=== PATIENT | male | born 1945 | race Caucasian/White ===

== ENCOUNTER 2018-11-27 10:49 | Emergency (ER) | payer OTHER ==
[~2018-11-27] VITALS: Ht 180.3 cm; Wt 107.0 kg
[2018-11-27] MEDS ORDERED: PRAVACHOL40 MG PO ×2 (10:58→12:24)
[2018-11-27] MEDS ORDERED: OMEPRAZOLE20 M1 PO (10:58)
[2018-11-27] MEDS ORDERED: TRAZODONE HCL100 MG PO ×2 (10:58→12:24)
[2018-11-27] MEDS ORDERED: ZOLOFT100 MG PO ×2 (10:58→12:24)
[2018-11-27] MEDS ORDERED: LOPRESSOR25 PO ×2 (10:59→12:26)
[2018-11-27] MEDS ORDERED: LOSARTAN POTASS50 MG PO (10:59)
[2018-11-27] MEDS ORDERED: ASPIR 8181 MG PO (10:59)
[2018-11-27] MEDS ORDERED: SPIRONOLACTONE25 M1 PO ×2 (10:59→12:24)
[2018-11-27] MEDS ORDERED: SYNTHROID75 MCG PO ×2 (11:00→12:24)
[2018-11-27 11:33] LABS: URINE BLOOD NEGATIVE (Negative); URINE CLARITY CLEAR; URINE COLOR YELLOW; URINE GLUCOSE-RANDOM NEGATIVE (Negative); URINE KETONES 2+ (Negative); URINE LEUKOCYTES-REFLEX NEGATIVE (Negative); URINE NITRITE-REFLEX NEGATIVE (Negative); URINE PROTEIN NEGATIVE (Negative)
[2018-11-27 11:35] LABS: ICTOTEST (BILI CONFIRMATORY) Negative (Negative); URINE BILIRUBIN 1+ (Negative)
[2018-11-27 11:40] LABS: AMP/METHAMP Negative (Negative); BARBITURATES Negative (Negative); BENZODIAZEPINES Negative (Negative); COCAINE Negative (Negative); METHADONE Negative (Negative); OPIATES Negative (Negative); PCP Negative (Negative); THC Negative (Negative)
[2018-11-27 11:49] LABS: ABSOLUTE EOSINOPHILS 0.2 thou/uL (0.0-0.7); ABSOLUTE LYMPHOCYTES 0.9 thou/uL (0.8-5.3); ABSOLUTE MONOCYTES 0.7 thou/uL (0.0-1.2); BASOPHILS 0.4 %; EOSINOPHILS 2.6 %; HEMOGLOBIN 15.2 gm/dL (14.0-18.0); LYMPHOCYTES 13.2 %; MCH 34.8 pg (26.0-34.0); MCHC 35.4 g/dL (28.0-37.0); MCV 98.2 fL (80.0-100.0); MONOCYTES 10.5 %; MPV 7.5 fl. (7.2-11.1); NUCLEATED RBCS 0 /100WBC; PLATELET COUNT* 191 thou/uL (150-400); POLYS 73.3 %; RBC 4.38 mil/uL (4.50-6.00); RDW-CV 12.9 % (10.5-14.5); WBC 6.8 thou/uL (4.0-11.0)
[2018-11-27 11:56] LABS: ANION GAP 13 mmol/L (7-16); BUN 6 mg/dL (7-18); CHLORIDE 97 mmol/L (98-107); CO2 22 mmol/L (21-32); CREATININE 0.8 mg/dL (0.6-1.3); GLUCOSE 103 mg/dL (70-99); POTASSIUM 3.8 mmol/L (3.5-5.1); SODIUM 132 mmol/L (136-145)
[2018-11-27 12:07] LABS: ALBUMIN 3.7 g/dL (3.4-5.0); ALKALINE PHOSPHATASE 72 U/L (46-116); LIPASE 179 U/L (73-393); NT-PRO BRAIN NAT PEPTIDE 960 pg/mL (<300); SGOT 55 U/L (15-37); SGPT 52 U/L (30-65); TOTAL BILIRUBIN 1.2 mg/dL (<0.1-1.0); TOTAL PROTEIN 6.7 g/dL (6.4-8.2); TROPONIN-I LEVEL <0.06 ng/mL (<0.06)
[2018-11-27] MEDS ORDERED: OMEPRAZOLE20 M2 PO (12:24)
[2018-11-27] MEDS ORDERED: ASPIR 8181 M1 PO (12:24)
[2018-11-27] MEDS ORDERED: COZAAR 25 MG TA25 M1 PO (12:24)
[2018-11-27] MEDS ORDERED: LOPRESSOR50 PO (12:24)
[2018-11-27] MEDS ORDERED: COZAAR 50 MG TA50 M1 PO (12:26)
[2018-11-27 12:45] VITALS: BP 171/96
--- NOTE | 2018-11-27 15:58 | EKG ---
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 : 1945 Requested By: Sacha Sarmiento Order Number: [id number] MD: Solomon Zee Measurements Intervals [place] Rate: 88 P: 28 VA: 194 QRS: -67 QRSD: 142 T: 20 QT: 366 QTc: 443 Interpretive Statements Sinus rhythm Probable left atrial enlargement Left bundle branch block Baseline wander in lead(s) V6 No previous ECG available for comparison Electronically Signed On 11-27-2018 15:57:50 CDT by Solomon Zee [email or web address] <ELECTRONICALLY SIGNED> By: Solomon Zee MD, [facility] 11/27/18 1557 D: [id number] Solomon Zee MD, FACC /EPI
== END 2018-11-27 12:47 | disposition home or self-care (01) ==
LOC: M.ERS 10:49
PROVIDERS: Emergency Medicine
DX: R53.1 Weakness (principal); I10 Essential (primary) hypertension; E78.5 Hyperlipidemia, unspecified; F32.9 Major depressive disorder, single episode, unspecified